=== PATIENT | female | born 1990 | race Caucasian/White ===

== ENCOUNTER 2016-06-06 20:35 | Emergency (ER) | payer SELFPAY ==
--- NOTE | 2016-06-06 21:24 | NUR ---
PATIENT LEFT WITHOUT BEING SEEN BY DR. CHEN. NO FURTHER CARE PROVIDED FOR PATIENT.
== END 2016-06-06 21:24 | disposition left against medical advice (07) ==
LOC: MED 20:35
DX: L02.91 Cutaneous abscess, unspecified (principal); Z53.21 Procedure and treatment not carried out due to patient leaving prior to being seen by health care provider

== ENCOUNTER 2018-06-10 20:20 | Emergency (ER) | payer MEDICAID ==
[~2018-06-10] VITALS: Ht 170.2 cm; Wt 68.0 kg
[2018-06-10 20:42] VITALS: BP 129/96
--- NOTE | 2018-06-10 20:42 | NUR ---
TO LOBBY AWAITNG BED, VSS.
--- NOTE | 2018-06-10 22:51 | NUR ---
PT BIB FAMILY FOR SORE THROAT X1 WEEK. PT REPORTS 10/10 ACHY PAIN IN THROAT THAT INCREASES WITH SWALLOWING. VISIBLE SWELLING IN PT MOUTH AROUND R TONSIL, PT VOICE IS MUFFLED. RR SYMMETRICAL AND NON-LABORED, PT DENIES SOB. ER MD TO SEE PT. WILL CONTINUE TO MONITOR.
[2018-06-10 23:34] LABS: BASOPHILS # (AUTO) 0.1 K/uL (0.00-0.22); BASOPHILS % (AUTO) 0.6 % (0.0-2.0); EOSINOPHILS # (AUTO) 0.3 K/uL (0-0.4); EOSINOPHILS % (AUTO) 3.1 % (0.0-4.0); HEMOGLOBIN 12.7 g/dL (12.0-16.0); LYMPHOCYTES # (AUTO) 2.4 K/uL (2.5-16.5); LYMPHOCYTES % (AUTO) 24.3 % (20.5-51.1); MEAN CORPUSCULAR HEMOGLOBIN 26 pg (27-31); MEAN CORPUSCULAR HGB CONC 33 g/dL (33-37); MEAN CORPUSCULAR VOLUME 79.8 fL (80-94); MONOCYTES # (AUTO) 0.7 K/uL (0.8-1.0); MONOCYTES % (AUTO) 7.2 % (1.7-9.3); NEUTROPHILS # (AUTO) 6.3 K/uL (1.8-7.7); NEUTROPHILS % (AUTO) 64.8 % (42.2-75.2); PLATELET COUNT (AUTO) 390 K/uL (140-450); RED BLOOD CELL COUNT(AUTO) 4.89 MIL/uL (4.20-5.40); RED CELL DISTRIBUTION WIDTH 12.6 % (11.6-13.7); WHITE BLOOD COUNT (AUTO) 9.7 K/uL (4.8-10.8)
[2018-06-10 23:40] LABS: ANION GAP 13.7 (8-16); CARBON DIOXIDE 29.6 mmol/L (21-32); CREATININE 0.8 mg/dL (0.6-1.3); POTASSIUM 3.3 mmol/L (3.5-5.1)
[2018-06-10 23:47] LABS: ALBUMIN 3.6 g/dL (3.4-5.0); TOTAL BILIRUBIN 0.4 mg/dL (0.0-1.0)
--- NOTE | 2018-06-11 00:32 | NUR ---
PT WENT TO CT AT THIS TIME.
--- NOTE | 2018-06-11 00:46 | NUR ---
PT RETURNED AT THIS TIME
[2018-06-11] MEDS ORDERED: MORPHINE SULFATE 4 MG/ML SYR IVP ONE (01:00)
[2018-06-11] MEDS ORDERED: DEXAMETHASONE 10 MG/ML VIAL IVP ONE (01:10)
[2018-06-11] MEDS ORDERED: LIDOCAINE VISCOUS 2% 20 ML UDC PO ONE (02:00)
[2018-06-11] MEDS ORDERED: LIDOCAINE 2% 1000 MG/50 ML VIAL INJ ONE (02:00)
[2018-06-11] MEDS ORDERED: LIDOCAINE 4% 40 MG/ML BTL TP ONE ×2 (02:00→02:33)
--- NOTE | 2018-06-11 02:45 | NUR ---
DR BULLARD PERFORMED BEDSIDE PROCEDURE TO DRAIN R TONSIL. PT WAS PREMEDICATED WITH LIDOCAINE TO REDUCE PAIN. PT TOLERATED WELL.
[2018-06-11] MEDS ORDERED: CLINDAMYCIN 900 MG in DEXTROSE 5% 100 ML IV ONE (03:05)
[2018-06-11] MEDS ORDERED: CLINDAMYCIN 900 MG/6 ML VIAL IV ONE (03:19)
[2018-06-11 04:24] VITALS: BP 115/79
--- NOTE | 2018-06-11 04:24 | NUR ---
Patient discharged with v/s stable. Written and verbal after care instructions given and explained. Patient alert, oriented and verbalized understanding of instructions. Ambulatory with steady gait. All questions addressed prior to discharge. ID band removed. Patient advised to follow up with PMD. Rx of IBUPROFEN, NORCO, CLINDAMYCIN given. Patient educated on indication of medication including possible reaction and side effects. Opportunity to ask questions provided and answered.
--- NOTE | 2018-06-15 13:28 | NUR ---
Late entry. Confirmed with RN that 900mg IVPB Cleocin was given over 1 hour and completed at 0416.
== END 2018-06-11 04:24 | disposition home or self-care (01) ==
LOC: MED 20:20
DX: J36 Peritonsillar abscess (principal)
CPT/HCPCS: 10160; 36415; 70491; 80053; 84702; 85025; 87081; 96365; 96375; 99284; J1100; J2001; J2270; J3490; J7030; Q9967